=== PATIENT | female | born 1970 | race Caucasian/White ===

== ENCOUNTER 2019-01-18 06:57 | Day surgery (SDC) | payer OTHER ==
[2019-01-14 10:45] VITALS: BMI 47.4
--- NOTE | 2019-01-17 09:22 | HP ---
HISTORY AND PHYSICAL CHIEF COMPLAINT: Left knee pain. HISTORY OF PRESENT ILLNESS: The patient is a 48-year-old female on disability, who presents with progressive left knee pain for the past several months. She notes pain and giving way that limits her. She has tried medications in addition to an injection with only partial temporary relief. PAST MEDICAL HISTORY: Significant for diabetes, obesity, hypertension, and psychiatric disorder. PAST SURGICAL HISTORY: Significant for previous ankle surgery, section, and cholecystectomy. CURRENT MEDICATIONS: 1. Alprazolam. 2. Hydrochlorothiazide. 3. Ibuprofen. 4. Lisinopril. 5. Metformin. 6. Pravastatin. ALLERGIES: She denies drug allergies. FAMILY HISTORY: Significant for heart disease. SOCIAL HISTORY: Negative for current tobacco or alcohol use. REVIEW OF SYSTEMS: Sixteen-point review of systems otherwise reviewed and is noncontributory. PHYSICAL EXAMINATION: On examination, the patient is approximately 5 feet 5 inches, 275 pounds of endomorphic habitus. HEENT exam is nonfocal. Neck is supple. She has painless passive motion of her left hip. Straight leg raise is negative. Active motion left knee -12 to 95 degrees of flexion. She is tender about the lateral greater than medial joint line. She has a moderate effusion. Collaterals are stable, Lorenza is negative, Ar's elicits medial pain. Her distal neurovascular exam appears intact in the left lower extremity. Previous MRI of the left knee by report showed evidence of a posterior medial meniscal tear. IMPRESSION: 1. Internal derangement left knee with symptomatic medial meniscal tear. 2. Morbid obesity. RECOMMENDATIONS: I talked to the patient at length regarding her condition along with treatment options. At this point, she is quite symptomatic, having pain and mechanical symptoms despite conservative measures. After thorough discussion, opts to proceed with surgery. We will plan to proceed with arthroscopic evaluation with possible partial medial meniscectomy. We will likely perform that as an outpatient procedure. Risks and benefits were discussed at length in layman's terms. MMODL / IJN: [id number] /
[~2019-01-18 06:57] MED LIST: DEXAMETHASONE SOD PHOSPHATE 10 MG/ML 1 ML VIAL IV ONE; LACTATED RINGERS 1,000 ML IV SCH; MIDAZOLAM 2 MG/2 ML VIAL IV PRN; ONDANSETRON 4 MG/2 ML VIAL IVP ONE; SCOPOLAMINE 1.5MG/72HR PATCH TRANSDERM ONE; ceFAZolin 3 GM in SODIUM CHLORIDE 0.9% 100 ML IVPB ONE
[2019-01-18 07:50] LABS: Glucose,Whole Blood 131 mg/dL (75-99)
[2019-01-18] MEDS ORDERED: ROPIVACAINE 5 MG/ML 30 ML VIAL ONE (08:08)
[2019-01-18] MEDS ORDERED: fentaNYL (PF) 50 MCG/ML 2 ML AMP ONE (08:08)
[2019-01-18] MEDS ORDERED: PROPOFOL 10 MG/ML 20 ML VIAL IV ONE (08:08)
[2019-01-18] MEDS ORDERED: SUCCINYLCHOLINE CHLORIDE 100 MG/5 ML SYR IV ONE (08:08)
[2019-01-18] MEDS ORDERED: MIDAZOLAM 2 MG/2 ML VIAL ONE (08:08)
[2019-01-18] MEDS ORDERED: LIDOCAINE 1% INJ 10MG/ML (20 ML MDV) ONE (08:08)
[2019-01-18] MEDS ORDERED: EPINEPHrine (PF) 1 ML in SODIUM CHLORIDE 0.9% IRRIGATIO 3,000 ML IRRIGATION ONE ×8 (08:14)
--- NOTE | 2019-01-18 08:56 | P.OP ---
Date of Procedure: 01/18/19 Preoperative Diagnosis: Left knee internal derangement Postoperative Diagnosis: Left knee posterior medial meniscal tear/grade 3 chondral injury distal medial femoral condyle Procedure(s) Performed: Left knee arthroscopic partial medial meniscectomy/medial femoral chondrectomy/microfracture medial femoral condyle Anesthesia: JASIEL Surgeon: Juan Carlos Reddy Estimated Blood Loss (ml): 10 Pathology: none sent Condition: stable Disposition: PACU Indications for Procedure: The patient's a 48-year-old female who presents with progressive left knee pain and mechanical symptoms despite conservative measures. A discussion of the risks and benefits of operative intervention versus continued conservative measures was made with the patient. She opted to proceed with surgery. Operative risks to include infection, neurovascular injury, development blood clots, possible incomplete resolution of symptoms, possible worsening symptoms and need for subsequent procedures was discussed. Informed consent was obtained. Operative Findings: As below Description of Procedure: The patient was brought to the operating room, and after induction of general anesthesia examined the left knee. Collaterals were stable, Lorenza was nega tive, and posterior drawer was negative. The left lower extremity was prepped and draped in a normal fashion. A superior lateral portal was made through a 3 mm skin incision superior and lateral to the patella. This was used for outflow. A large effusion was encountered. A lateral portal was made through a 5 mm vertical skin incision lateral to the patella tendon above the joint line. Diagnostic arthroscopy was performed. On inspection of the medial compartment, and oblique tear involving the posterior horn of the medial meniscus in the white-red junction was noted.. This was debrided back to stable base with straight baskets and a motorized shaver. There was a loose chondral fragment on the distal end of the medial femoral condyle. This was debrided back to stable base with a motorized shaver. Microfracture was performed with a chondral awl breaching the subchondral surface down to the bone marrow elements. On inspection of the notch, the anterior cruciate ligament appeared to be intact. On inspection of the lateral compartment, no significant meniscal tear was noted. There were minimal degenerative changes. On inspection of the patellofemoral articulation grade 2 chondral fibrillation was noted however no loose chondral fragments were present. The gutters were clear debris. The knee was then thoroughly irrigated. The portals were closed with Steri-Strips. A sterile dressing was applied in addition to a compression stocking. The patient was awoken from general anesthesia and transferred to recovery room in good condition. Blood loss was estimated at 10 mL. No complications were incurred.
[2019-01-18 09:13] VITALS: TEMP 97
[2019-01-18 09:20] LABS: Glucose,Whole Blood 136 mg/dL (75-99)
[2019-01-18] MEDS: HYDROmorphone 0.5 MG/0.5 ML SYRINGE IVP PRN ×5 (09:20→10:38)
[2019-01-18] MEDS ORDERED: hydrALAZINE HCL 20 MG/ML 1 ML VIAL IVP ONE (09:58)
[2019-01-18] MEDS ORDERED: KETOROLAC 30 MG/ML 1 ML VIAL IVP ONE (10:08)
[2019-01-18] MEDS ORDERED: HYDROmorphone 1 MG/ML 1 ML SYRINGE IVP ONE (10:30)
[2019-01-18 11:08] VITALS: RESP 18
[2019-01-18] MEDS ORDERED: HYDROcodone/APAP 7.5-325MG 1 EACH TAB PO ONE ×2 (11:26→12:33)
[2019-01-18 13:07] VITALS: BP 146/75; PULSE 78
--- NOTE | 2019-01-18 13:25 | P.ANPRN ---
Procedure Note - Anesthesia - Nerve Block Performed Left Adductor Canal Single Time Out Performed: Yes Date of Procedure: 01/18/19 Procedure Start Time: 12:51 Procedure Stop Time: 12:59 Location of Patient Procedure: PACU Indication: Acute Post-Operative Pain, Requested by Surgeon Sedation Type: Sedate with meaningful contact maintained Preparation: Sterile Prep, Sterile Dressing Position: Supine Catheter: None Needle Types: Pajunk Needle Gauge: 20 Ultrasound used to visualize needle placement: Yes Ultrasound used to observe medication spread: Yes Injectate: 0.5% Ropivacaine (see comment for volume) (20 ml) Blood Aspirated: No Pain Paresthesia on Injection Noted: No Resistance on Injection: Normal Image Stored and Saved: Yes Events: Uneventful and Well Tolerated
== END 2019-01-18 13:26 | disposition home or self-care (01) ==
LOC: OR 06:57
PROVIDERS: ATTEND Orthopaedic Surgery
DX: S83.242A Other tear of medial meniscus, current injury, left knee, initial encounter (principal); X58.XXXA Exposure to other specified factors, initial encounter; M23.42 Loose body in knee, left knee; E11.9 Type 2 diabetes mellitus without complications; I10 Essential (primary) hypertension; E78.5 Hyperlipidemia, unspecified; F99 Mental disorder, not otherwise specified; E66.01 Morbid (severe) obesity due to excess calories; Z68.42 Body mass index [BMI] 45.0-49.9, adult; Z79.84 Long term (current) use of oral hypoglycemic drugs; Z79.1 Long term (current) use of non-steroidal anti-inflammatories (NSAID); Z79.899 Other long term (current) drug therapy; Z79.891 Long term (current) use of opiate analgesic; Z91.09 Other allergy status, other than to drugs and biological substances; Z98.890 Other specified postprocedural states; Z90.49 Acquired absence of other specified parts of digestive tract; Z90.89 Acquired absence of other organs; Z98.51 Tubal ligation status; Z82.49 Family history of ischemic heart disease and other diseases of the circulatory system
CPT/HCPCS: 64447; 76942; 29881; 29879; J2250; J0360; J1100; J0690; J2405; J0171; J2001; J3010; J1885; J1170 ×2; J2795; J0330; J2704

== ENCOUNTER → 2020-06-26 | Outpatient (CLI) | payer OTHER | END | disposition home or self-care (01) | LOC: LABPAT 09:17 | PROVIDERS: ATTEND Orthopaedic Surgery | DX: Z01.812 Encounter for preprocedural laboratory examination (principal) | CPT/HCPCS: 87070 ==

== ENCOUNTER 2020-07-17 05:47 | Day surgery (SDC) | payer OTHER ==
--- NOTE | 2020-07-16 09:23 | HP ---
HISTORY AND PHYSICAL CHIEF COMPLAINT: Left knee pain. HISTORY OF PRESENT ILLNESS: The patient is a 49-year-old female who presents with progressive left knee pain for the past several years. She notes pain with any weightbearing activities. She has swelling and intermittent giving way. She does ambulate with a cane. She has tried previous injections along with medications and a weight loss program without much relief. She notes she is significantly limited because of pain. PAST MEDICAL HISTORY: Significant for type 2 diabetes, hypertension, and depression. PAST SURGICAL HISTORY: Significant for significant left knee arthroscopy, cholecystectomy, ankle surgery, and section. CURRENT MEDICATIONS: 1. Alprazolam. 2. Benztropine. 3. Hydrochlorothiazide. 4. Ibuprofen. 5. Lisinopril. 6. Metformin. 7. Pravastatin. 8. Lexapro. 9. Lyrica. 10.Omeprazole. ALLERGIES: She denies drug allergies. FAMILY HISTORY: Significant for heart disease. SOCIAL HISTORY: Negative for current tobacco or alcohol use. REVIEW OF SYSTEMS: Sixteen-point review of systems otherwise reviewed and is noncontributory. PHYSICAL EXAMINATION: On examination, the patient is approximately 5 feet, 5 inches, 266 pounds of endomorphic habitus. HEENT exam is nonfocal. Neck is supple. She has painless passive motion left hip. Straight leg raise is negative. Active motion left knee -12 to 100 degrees of flexion. She has a moderate effusion. She is tender about the medial joint line. Collaterals are stable, Lorenza is negative, Ar's is equivocal. She has genu varum alignment. Her distal neurovascular exam appears intact in the left lower extremity. X-rays of the left knee obtained in the office shows severe medial compartment narrowing with [id number] changes and subchondral sclerosis. IMPRESSION: 1. Left knee severe medial compartment osteoarthrosis. 2. Non-insulin dependent diabetes. 3. Increased body mass index. RECOMMENDATIONS: I talked to the patient at length regarding her condition and treatment options. She has been adhering to weight loss program, has recently lost 25 pounds. After thorough discussion, she opts to proceed with surgery. We will plan to proceed with left total knee arthroplasty. Risks and benefits were discussed at length in layman's terms. We will institute DVT prophylaxis postoperatively. MMODL / IJN: [id number] /
[~2020-07-17 05:47] MED LIST changes: +ACETAMINOPHEN TAB 500 MG TAB PO PRN; -DEXAMETHASONE SOD PHOSPHATE 10 MG/ML 1 ML VIAL IV ONE; -LACTATED RINGERS 1,000 ML IV SCH; +MELOXICAM 7.5 MG TAB PO PRN; -MIDAZOLAM 2 MG/2 ML VIAL IV PRN; -ONDANSETRON 4 MG/2 ML VIAL IVP ONE; +ONDANSETRON 4 MG/2 ML VIAL IVP PRN; +ROPIVACAINE 246.25 MG, EPINEPHrine 0.5 MG, KETOROLAC 30 MG, cloNIDine HCL/PF 80 MCG, WA... MISCELLANE PRN; -SCOPOLAMINE 1.5MG/72HR PATCH TRANSDERM ONE; +TRANEXAMIC ACID 1,000 MG in SODIUM CHLORIDE 0.9% 100 ML IVPB PRN; -ceFAZolin 3 GM in SODIUM CHLORIDE 0.9% 100 ML IVPB ONE; +ceFAZolin 3 GM in SODIUM CHLORIDE 0.9% 100 ML IVPB PRN
[2020-07-17] MEDS ORDERED: LIDOCAINE 1% (10MG/ML) FOR IV START INTRADERMA ONE (06:45)
[2020-07-17] MEDS ORDERED: DEXAMETHASONE SOD PHOSPHATE 4 MG/ML 1 ML VIAL IV ONE (06:45)
[2020-07-17] MEDS: LACTATED RINGERS 1,000 ML IV SCH ×3 (06:45→16:28)
[2020-07-17] MEDS ORDERED: fentaNYL (PF) 50 MCG/ML 2 ML AMP IV PRN (07:00)
[2020-07-17 07:04] LABS: Glucose,Whole Blood 143 mg/dL (75-99)
[2020-07-17] MEDS ORDERED: MIDAZOLAM 2 MG/2 ML VIAL IV ONE ×2 (07:13→07:15)
[2020-07-17] MEDS ORDERED: ROCURONIUM 10 MG/ML (5 ML VIAL) IV ONE (07:43)
[2020-07-17] MEDS ORDERED: PROPOFOL 10 MG/ML 20 ML VIAL IV ONE (07:43)
[2020-07-17] MEDS ORDERED: fentaNYL (PF) 50 MCG/ML 2 ML AMP ONE (07:43)
[2020-07-17] MEDS ORDERED: HYDROmorphone (PF) 1 MG/ML ONE (07:43)
[2020-07-17] MEDS ORDERED: LIDOCAINE 1% INJ 10MG/ML (20 ML MDV) ONE (07:43)
[2020-07-17] MEDS ORDERED: TRANEXAMIC ACID 1,000 MG/10 ML VIAL ONE (07:43)
[2020-07-17] MEDS ORDERED: SUCCINYLCHOLINE CHLORIDE 100 MG/5 ML SYR IV ONE (07:43)
[2020-07-17] MEDS ORDERED: ePHEDrine SULFATE/0.9% NACL/PF 50 MG/5 ML SYRINGE IV ONE (07:43)
[2020-07-17] MEDS ORDERED: SODIUM CHLORIDE 0.9% 100 ML BAG ONE (07:43)
[2020-07-17] MEDS ORDERED: KETAMINE 10 MG/ML 20 ML VIAL ONE (07:43)
[2020-07-17] MEDS ORDERED: NEOSTIGMINE 1 MG/ML 10 ML VIAL ONE (07:43)
[2020-07-17] MEDS ORDERED: GLYCOPYRROLATE 0.2 MG/ML 2 ML VIAL ONE (07:43)
[2020-07-17] MEDS ORDERED: ROPIVACAINE/EPI/CLONIDINE/KET 50 ML SYRINGE MISCELLANE PRN (08:07)
[2020-07-17] MEDS ORDERED: ceFAZolin 3,000 MG in SODIUM CHLORIDE 0.9% IRRIGATIO 3,000 ML IRRIGATION ONE (08:21)
--- NOTE | 2020-07-17 09:24 | P.ANPRN ---
Procedure Note - Anesthesia - Nerve Block Performed Left Adductor Canal Time Out Performed: Yes (07:12) Date of Procedure: 07/17/20 Procedure Start Time: Procedure Stop Time: Location of Patient: PreOp Indication: Acute Post-Operative Pain, Requested by Surgeon (Dr Reddy) Sedation Type: Sedate with meaningful contact maintained Preparation: Sterile Prep, Sterile Dressing Position: Supine Catheter: Indwelling Needle Types: Pajunk Needle Gauge: 21 Ultrasound used to visualize needle placement: Yes Ultrasound used to observe medication spread: Yes Injectate: 0.5% Ropivacaine (see comment for volume) (20cc) Blood Aspirated: No Pain Paresthesia on Injection Noted: No Resistance on Injection: Normal Image Stored and Saved: Yes Events: Uneventful and Well Tolerated
[2020-07-17] MEDS ORDERED: ROPIVACAINE 0.2%-NS ON-Q PUMP 1,090 MG, EMPTY PAIN BALL 1 EACH MISCELLANE PRN (09:30)
[2020-07-17] MEDS ORDERED: HYDROcodone/APAP 7.5-325MG 1 EACH TAB PO PRN (09:39)
[2020-07-17] MEDS ORDERED: traMADol 50 MG TAB PO PRN (09:39)
[2020-07-17] MEDS ORDERED: ACETAMINOPHEN TAB 325 MG TAB PO PRN (09:39)
[2020-07-17] MEDS ORDERED: MAGNESIUM HYDROXIDE 2,400 MG/10 ML CUP PO PRN (09:39)
[2020-07-17] MEDS ORDERED: NALOXONE 0.4 MG/ML 1 ML VIAL IV PRN ×2 (09:39→16:44)
[2020-07-17] MEDS ORDERED: ONDANSETRON 4 MG/2 ML VIAL IVP PRN (09:39)
[2020-07-17] MEDS: HYDROmorphone 0.5 MG/0.5 ML SYRINGE IVP PRN ×4 (10:16→11:00)
--- NOTE | 2020-07-17 10:17 | P.OP ---
Date of Procedure: 07/17/20 Preoperative Diagnosis: Left knee severe tricompartmental osteoarthrosis Postoperative Diagnosis: Same Procedure(s) Performed: Left total knee arthroplastycementedposterior stabilized Implants: Depuy Attune the femoral component, size 5 cemented tibial component, 10 mm articular surface, 35 mm cemented patellar component. This is a posterior stabilized implant. Anesthesia: GETA, regional, local Surgeon: Juan Carlos Reddy Shop Mechanic #1: Gerardo Alexandre Assistant #2: Jorge England Estimated Blood Loss (ml): 50 Pathology: other (Bone fragments) Condition: stable Indications for Procedure: The patient is a 49-year-old female presents with progressive left knee pain secondary to osteoarthrosis despite previous conservative measures. A discussion of the risks and benefits of operative intervention versus continued conservative measures was made with patient. She opted to proceed with surgery. Operative risks to include possible infection, blood clots, fracture, neurovascular injury, possible component loosening/failure and need for subsequent procedures was discussed. Informed consent was obtained. Operative Findings: As below Description of Procedure: The patient was brought to the operating room, and after induction of spinal anesthesia the left lower extremity was prepped and draped in a normal fashion. The tourniquet was inflated to 270 mm marker. A longitudinal incision extending 3 finger breaths above the superior pole of patella extending to the medial aspect the tibial tubercle was then made. The skin and subcutaneous tissues were divided sharply. Electrocautery was used for hemostasis. A medial parapatellar arthrotomy was performed. The medial soft tissues to include the superficial and deep portions of the medial collateral ligament were elevated subperiosteally. The patella was everted. A portion of the retropatellar fat pad was excised sharply. The anterior cruciate ligament was sacrificed. Blunt retractors were placed. A starting hole was made in the distal femur 1 cm anterior to the posterior cruciate ligament origin. An intramedullary femoral guide was then inserted planning on 5 valgus distal cut with 9 mm distal resection. The cutting block was pinned in place. The distal cut was then made. The posterior referencing sizing guide was utilized. I felt size 6 narrow was most appropriate. 3 of external rotation was built into the system and verified off the trans-epicondylar axis and the posterior condyles. The cutting block was pinned in place. The anterior, posterior, and chamfer cuts then made. Bone fragments were removed. The intercondylar guide was placed and the notch cut was made with a sagittal saw. The bone block was removed in one fragment. The trial component was then placed. There is good anterior to posterior and medial to lateral fit. The distal peg holes were drilled. The trial component was removed. Attention was then paid towards preparing the proximal femur. An extra medullary guide was utilized in line with the tibial shaft and second metatarsal distally. I planned on 4 mm resection from the medial compartment. The cutting block was pinned in place. The proximal tibial cut was then made. The bone was removed in one fragment. The remnants of the medial and lateral menisci were excised at the capsular junction with electrocautery. The tibia sized most appropriately at size 5. The trial femoral and tibial components were placed along with a 9 mm articular surface. I was able to obtain full flexion and extension with internal and external rotation. After several flexion and extension cycles, the tibial rotation was marked with electrocautery line with the medial one third of the tibial tubercle. Attention was then paid towards preparing the patella. A patella reamer was utilized taking stem to 14 mm of bone stock. A good flush cut was made. The patella sized most appropriately 35 mm. The peg holes were drilled. The trial components placed. I had good patellofemoral tracking with no hands technique. The trial components were then removed. The tibia was prepared in the appropriate rotation with appropriate drill and keel punch. The posterior osteophytes were removed with a curved osteotome. The flexion and extension gaps were checked and felt to be symmetric at 10 mm. A trial components were then removed. The posterior soft tissues were injected with ropivacaine. The bony surfaces were prepared with pulsatile lavage and dried. The tibial component was then cemented place was fully seated. Excess cement was removed. The femoral component cemented place and was fully seated. Excess cement was removed. The trial 10 mm articular surface was placed and the knee was put in full extension. The patella component was cemented place. After the cement had sufficiently hardened, the knee was again taken through a range of motion. Again I was able to obtain full flexion and extension with varus and valgus st ress. The trial 10 mm articular surface was removed and the final one inserted. This was fully seated. Care was taken to avoid any soft tissue interposition. Pulsatile lavage was again utilized. The medial parapatellar arthrotomy was closed with #2 Ethibond suture. The tourniquet was deflated with approximately 65 minutes total tourniquet time. Final hemostasis was obtained with the cautery. There was minimal bleeding therefore a deep drain was not placed. The subcutaneous tissues were reapproximated with interrupted 2-0 Vicryl sutures. The skin was reapproximated with 3-0 subcuticular strata fix suture. Skin tape and adhesive was applied. A sterile dressing was applied. The patient was awoken from sedation and transferred to recovery room in good condition. Blood loss was estimated at 50 mL. No complications were incurred. Sponge and needle counts were correct at the end of the case. Leif HERRERA assisted during the major components of this case to include exposure, bone resection, implantation, and closure.
--- NOTE | 2020-07-17 10:47 | XR ---
EXAMINATION TYPE: XR knee limited LT DATE OF EXAM: 07/17/2020 COMPARISON: NONE TECHNIQUE: Two views submitted HISTORY: Post op FINDINGS: There is a prosthetic knee in near anatomic alignment. There is soft tissue edema and emphysema. IMPRESSION: 1. Postoperative change. Appears in near-anatomic alignment
[2020-07-17] MEDS ORDERED: LACTATED RINGERS 1,000 ML IV ONE (10:49)
[2020-07-17 16:41] LABS: Glucose,Whole Blood 241 mg/dL (75-99)
--- NOTE | 2020-07-17 17:03 | P.CONS ---
History of Present Illness - Reason for Consult Consult date: 07/17/20 Medical Managment - Chief Complaint Status post left total knee arthroplasty - History of Present Illness History of presenting illness: Patient is a 49-year-old female with a past medical history including hypertension, hyperlipidemia, chronic back pain with implanted morphine pain pump, bipolar disorder, and depression. Patient currently admitted under Dr. Reddy status post left total knee arthroplasty secondary to severe tricompartmental osteoarthritis. Our team has been consulted for continued medical management. Upon examination, patient sitting up in chair at bedside. She was awake, alert, and oriented 4. She reported mild postop pain/discomfort in left lower extremity but reports this is at a tolerable level at this time. Patient states she has been able to tolerate oral intake of both solids foods and liquids status post surgical procedure and denies having any postoperative nausea or vomiting. Patient's past medical history and home medications were reviewed and confirmed. Patient denies knowing dose of morphine that is administered through her implantable pain pump and is calling pain clinic at this time. RN notified Dr. Reddy, primary admitting provider whom will be in control of pain management. Patient denies having any headache, lightheadedness, dizziness, changes in her vision or hearing, tinnitus, chest pa in or palpitations, shortness of breath, cough or congestion, abdominal pain, nausea, vomiting, experiencing any changes/difficulties with urinary or bowel function, or experiencing any numbness/tingling/weakness in extremities. Patient denies having any other questions, needs, or complaints at this time. Review of systems: Pertinent positives and negatives as discussed in HPI, a complete review of systems was performed and all other systems are negative. Physical exam: General: non toxic, no distress, appears at stated age Derm: warm, dry Head: atraumatic, normocephalic, symmetric Eyes: EOMI, no lid lag, anicteric sclera Mouth: no lip lesion, mucus membranes moist. Missing teeth. Cardiovascular: S1S2 normal with regular rate and rhythm. No murmur, gallop, or rub. Positive posterior tibial pulses bilaterally. Lungs: Respirations even and unlabored. Lungs CTA bilaterally with no wheezes, rhonchi, or rales noted. No accessory muscle usage. Abdominal: Obese abdomen soft, nontender to palpation, no guarding, no appreciable organomegaly Ext: Bilateral upper and right lower extremity with full range of motion and movement and sensation intact. No deformities noted. Postsurgical splint/dressing in place to left lower extremity sensation and movement of left toes intact. Cap refill less than 2 seconds. No signs of postsurgical bleeding through surgical dressing noted. Neuro: CN II-XI grossly intact, no focal neuro deficits Psych: Alert, oriented, appropriate affect Assessment and Plan of Care: Xaz-cvmyage-jxcxcmxli diabetes mellitus type II with hyperglycemia -Hold Glucophage. Patient placed on glycemic protocol with NovoLog sliding scale to be administered ACHS. -Heart healthy carb consistent diet. Hypertension -Monitor vital signs and continue daily medication regimen with hydrochlorothiazide and lisinopril. Hyperlipidemia -Continue daily medication management with pravastatin 40 mg nightly. -Heart healthy carb consistent diet. Bipolar disorder with depression -Continue daily medication regimen consisting of Xanax, Cogentin, Topamax, and Geodon. Chronic back pain -Patient has implantable morphine pump. Patient is calling pain clinic to get dose that is administered every 3 hours. -Orthopedic team has been notified of pain pump, and will be in charge of patient's pain management. -Narcan order has been placed. Status post left total knee arthroplasty -Patient is status post left total knee arthroplasty secondary to severe tricompartmental osteoarthritis. -Postoperative care, pain management, DVT prophylaxis, weightbearing activities, PT/OT as directed by primary admitting orthopedic surgery team. -Patient currently on DVT prophylaxis with Xarelto. Thank you for allowing us to participate in the care of this pleasant patient. Do not hesitate to contact us with questions. Someone can be reached from the [facility] hospitalist group all hours of the day at [phone] or via [email or web address]. Past Medical History Past Medical History: Diabetes Mellitus, Hyperlipidemia, Hypertension, Memory Impairment Additional Past Medical History / Comment(s): mood disorder. PATIENT HAS A MORPHINE PUMP, MANAGED BY JAVIER WATSON (WITH DR. MOSQUERA) NEW DOSE DUE SEPTEMBER 11. History of Any Multi-Drug Resistant Organisms: None Reported Past Surgical History: Section, Cholecystectomy, Orthopedic Surgery, Tonsillectomy Additional Past Surgical History / Comment(s): LEFT ARTHOSCOPY IN 2019. C-SEC X 2. LT ANKLE SX Past Anesthesia/Blood Transfusion Reactions: No Reported Reaction Past Psychological History: Anxiety, Bipolar, Depression Additional Psychological History / Comment(s): MOOD DISORDER Smoking Status: Never smoker Past Alcohol Use History: Occasional Additional Past Alcohol Use History / Comment(s): QUIT SMOKING IN 1999 Past Drug Use History: Marijuana Additional Drug Use History / Comment(s): USES MARIJUANA ON OCCASION-KNOWS TO REFRAIN FROM USE FOR AT LEAT 24 HOURS PRIOR TO PROCEDURE - Past Family History Mother Family Medical History: No Reported History Medications and Allergies Home Medications Medication Instructions Recorded Confirmed Type Benztropine Mesylate [Cogentin] 1 mg PO BID 01/14/19 07/12/20 History Morphine Pain Pump 1 dose INJ CONTINUOUS 01/14/19 07/12/20 History Pravastatin Sodium [Pravachol] 40 mg PO HS 01/14/19 07/12/20 History Pregabalin [Lyrica] 100 mg PO BID 01/14/19 07/12/20 History Topiramate [Topamax] 50 mg PO BID 01/14/19 07/12/20 History Ziprasidone [Geodon] 80 mg PO HS 01/14/19 07/12/20 History hydroCHLOROthiazide [Hydrodiuril] 25 mg PO QAM 01/14/19 07/12/20 History lisinopriL [Zestril] 20 mg PO QAM 01/14/19 07/12/20 History metFORMIN HCL [Glucophage] 850 mg PO BID 01/14/19 07/12/20 History ALPRAZolam [Xanax] 0.5 mg PO QAM 07/12/20 07/12/20 History ALPRAZolam [Xanax] 1 mg PO HS PRN 07/12/20 07/12/20 History Omeprazole [PriLOSEC] 20 mg PO DAILY PRN 07/12/20 07/12/20 History Allergies Allergy/AdvReac Type Severity Reaction Status Date / Time No Known Allergies Allergy Verified 07/17/20 06:19 Physical Exam Vitals: Vital Signs Temp Pulse Pulse Resp BP Pulse Ox 07/17/20 14:00 96 18 129/57 97 07/17/20 13:40 90 16 106/53 94 L 07/17/20 13:00 94 18 122/57 98 07/17/20 12:01 88 18 133/59 94 L 07/17/20 11:30 80 18 116/60 94 L 07/17/20 11:01 83 18 142/64 95 07/17/20 10:46 88 18 136/58 92 L 07/17/20 10:30 89 18 144/85 92 L 07/17/20 10:15 87 18 141/86 99 07/17/20 10:06 98.2 F 115 H 25 H 132/83 97 07/17/20 07:40 64 16 93/54 98 07/17/20 07:30 64 16 93/50 97 07/17/20 06:45 97.0 F L 76 16 123/66 96 Intake and Output 07/17/20 07/17/20 07/17/20 06:59 14:59 22:59 Intake Total 400 701 Output Total 50 Balance 400 651 Intake: IV 400 701 Output: Estimated Blood Loss 50 Other: Weight 116 kg 116 kg Results Labs: Abnormal Lab Results - Last 24 Hours (Table) 07/17/20 Range/Units 06:55 POC Glucose (mg/dL) 143 H (75-99) mg/dL
[2020-07-17] MEDS: HYDROcodone/APAP 7.5-325MG 1 EACH TAB PO PRN (17:47)
[2020-07-17] MEDS: INSULIN ASPART (NovoLOG) 100 UNIT/ML VIAL SQ SCH ×2 (17:48→19:55)
[2020-07-17 19:53] LABS: Glucose,Whole Blood 187 mg/dL (75-99)
[2020-07-17] MEDS ORDERED: PRAVASTATIN SODIUM 40 MG TAB PO SCH (21:00)
[2020-07-17] MEDS ORDERED: ZIPRASIDONE 40 MG CAP PO SCH (21:00)
[2020-07-17] MEDS ORDERED: SENNOSIDES-DOCUSATE SODIUM 1 EACH TAB PO SCH (21:00)
[2020-07-17] MEDS: TOPIRAMATE 25 MG TAB PO SCH (21:23)
[2020-07-17] MEDS: PREGABALIN 100 MG CAP PO SCH (21:23)
[2020-07-17] MEDS: BENZTROPINE MESYLATE 1 MG TAB PO SCH (21:23)
[2020-07-18] MEDS: HYDROcodone/APAP 7.5-325MG 1 EACH TAB PO PRN ×2 (05:28→12:11)
[2020-07-18 06:41] LABS: Glucose,Whole Blood 189 mg/dL (75-99)
[2020-07-18] MEDS: INSULIN ASPART (NovoLOG) 100 UNIT/ML VIAL SQ SCH ×2 (07:10→12:07)
[2020-07-18] MEDS ORDERED: PANTOPRAZOLE 40 MG TABLET PO SCH (07:30)
--- NOTE | 2020-07-18 07:53 | P.PN ---
Progress Note - Text The patient is status post left adductor canal catheter placement. The catheter was placed for postoperative pain control, status post total left arthroplasty. Ropivacaine 0.2% is infusing at 8 mLs per hour. The patient has no complaints of left lower extremity numbness or weakness. Patient's VAS score is 2-3 -10. Assessment: Patient's adductor canal catheter is in place and working appropriately. Plan: continue infusion and adjust it as needed.
[2020-07-18 08:03] VITALS: PULSE 88
[2020-07-18 08:48] LABS: Basophils # (A) 0.04 X 10*3/uL (0.00-0.10); Basophils % (A) 0.4 %; Eosinophils # (A) 0.12 X 10*3/uL (0.04-0.35); Eosinophils % (A) 1.3 %; HCT 30.3 % (37.2-46.3); HGB 9.6 g/dL (12.0-15.0); Lymphocytes # (A) 2.82 X 10*3/uL (0.90-5.00); Lymphocytes % (A) 29.7 %; MCH 27.8 pg (27.0-32.0); MCHC 31.7 g/dL (32.0-37.0); MCV 87.8 fL (80.0-97.0); Monocytes % (A) 8.4 %; Neutrophils # (A) 5.66 X 10*3/uL (1.80-7.70); Neutrophils % (A) 59.8 %; Platelet Count 287 X 10*3/uL (140-440); RBC 3.45 X 10*6/uL (4.10-5.20); RDW 14.1 % (11.5-14.5); WBC 9.48 X 10*3/uL (4.50-10.00)
[2020-07-18] MEDS ORDERED: RIVAROXABAN 10 MG TAB PO SCH (09:00)
[2020-07-18] MEDS ORDERED: lisinopriL 20 MG TAB PO SCH (09:00)
[2020-07-18] MEDS ORDERED: ALPRAZolam 0.5 MG TAB PO SCH (09:00)
[2020-07-18] MEDS ORDERED: hydroCHLOROthiazide 25 MG TAB PO SCH (09:00)
[2020-07-18 09:18] LABS: African American GFR (CKD) 86.4 (60.0-200.0); Anion Gap 11.2 mmol/L (4.00-12.00); BUN/Creat Ratio 16.67 Ratio (12.00-20.00); Calcium 8.8 mg/dL (8.7-10.3); Carbon Dioxide 25.8 mmol/L (21.6-31.8); Magnesium 1.7 mg/dL (1.5-2.4); Non-African American GFR(CKD) 74.6 (60.0-200.0); Potassium 3.5 mmol/L (3.5-5.5)
[2020-07-18] MEDS: PREGABALIN 100 MG CAP PO SCH (10:21)
[2020-07-18] MEDS: TOPIRAMATE 25 MG TAB PO SCH (10:23)
[2020-07-18] MEDS: BENZTROPINE MESYLATE 1 MG TAB PO SCH (10:25)
--- NOTE | 2020-07-18 10:29 | P.PN ---
Subjective Progress Note Date: 07/18/20 Principal diagnosis: Left total knee arthroplasty Postoperative day 1 Status post total left knee arthroplasty Upon entering room patient was lying semi-recumbent in bed. Patient was icing knee. Patient rates pain as 8 out of 10. Patient has been working with physical therapy and has been ambulating around the floor with walker for assistance. Patient says she is ready to go home today. Patient says her pain doctor told her to discontinue her pain pump. Objective - Vital Signs Vital signs: Vital Signs Temp 98.6 F 07/18/20 08:02 Pulse 88 07/18/20 08:02 Resp 14 07/18/20 08:02 BP 130/77 07/18/20 08:02 Pulse Ox 99 07/18/20 01:39 Intake & Output 07/17/20 07/18/20 07/18/20 18:59 06:59 18:59 Intake Total 701 Output Total 50 Balance 651 Weight 116 kg Intake: IV 701 Output: Estimated Blood Loss 50 Other: Voiding Method Toilet # Voids 1 2 - Exam Incision is clean, dry, and intact. The exofin fusion tape is in good condition. There is minimal soft tissue swelling and ecchymosis surrounding the medial and lateral aspects of the incision. Calf is soft, no tenderness with palpation. Plantar flexion, dorsiflexion, EHL, FHL are intact. Sensory exam to light touch throughout the extremity is intact, dorsal pedis pulses 2+. - Labs CBC & Chem 7: 07/18/20 05:22 07/18/20 05:22 Labs: Abnormal Lab Results - Last 24 Hours (Table) 07/17/20 07/17/20 07/18/20 Range/Units 16:31 19:51 05:22 RBC 3.45 L (4.10-5.20) X 10*6/uL Hgb 9.6 L (12.0-15.0) g/dL Hct 30.3 L (37.2-46.3) % MCHC 31.7 L (32.0-37.0) g/dL Glucose (70-110) mg/dL POC Glucose (mg/dL) 241 H 187 H (75-99) mg/dL 07/18/20 07/18/20 Range/Units 05:22 06:40 RBC (4.10-5.20) X 10*6/uL Hgb (12.0-15.0) g/dL Hct (37.2-46.3) % MCHC (32.0-37.0) g/dL Glucose 179 H (70-110) mg/dL POC Glucose (mg/dL) 189 H (75-99) mg/dL Assessment and Plan Assessment: Postop day 1 Status post Left total knee arthroplasty Plan: Plan: 1. Continue with medical management 2. Pain medication - [place] 7.5 mg/325 mg 3. Continue with physical therapy at home, including gait/stair training. 4. DVT prophylaxis - Eliquis 2.5 mg twice a day for 2 weeks 5. Take stool softeners as needed 6. Discharge planning 7. Anticipated discharge today, 07/18/2020. keep exofin fusion tape on until 2 week postoperative visit. Cover incision with plastic bag or saran wrap while showering. Time with Patient: Less than 30
--- NOTE | 2020-07-18 10:35 | P.DS ---
Providers Date of admission: 07/17/2020 Expected date of discharge: 07/18/20 Attending physician: Juan Carlos Reddy Consults: 07/17/20 09:41 Consult Physician Routine Consulting Provider: Doris Olea Consult Reason/Comments: Medical Management Do you want consulting provider notified?: Yes 07/17/20 16:52 Consult to Anesthesia Routine Consulting Provider: Anesthesia,Services Consult Reason/Comments: implanted pain pump Primary care physician: Stated None Hospital Course: Date of admission: 07/17/2020 Date of discharge: 07/18/2020 Admission diagnosis: Left total knee arthroplasty Discharge diagnosis: same Attending physician: Dr. Reddy Surgical procedures: Left total knee arthroplasty Brief history: Patient is a 49-year-old female with a history of progressive primary left knee osteoarthritis. At this point patient has failed conservative treatment measures and has opted to proceed with a elective left total knee arthroplasty. Hospital course: Details of patient's surgery can be found in operative report. Patient tolerated the procedure well and was subsequently transported to orthopedic floor. Patient's orthopeidc and medical care was provided daily. Patient had daily laboratory tests performed for evaluation of overall blood counts. Patient had daily physical therapy to include strengthening range of motion as well as education with walker ambulation. Patient was treated with eloquence for their postoperative DVT prophylaxis during their inpatient stay. Patient was noted to have a relatively uneventful postoperative course. Patient reported satisfactory pain control with oral pain medications by postoperative day 1. Patient showed satisfactory progress with physical therapy. Patient moved steadily through the program and had no difficulty meeting the goals by postoperative day 1. Given patient's otherwise satisfactory course and having met physical therapy goals, plan is to discharge patient home on postoperative day 1. Discharge condition/disposition: Patient will be discharged home in stable condition. Discharge medications: Instructions are given on resumption of patient's normal daily medications per primary care recommendation, in addition patient will be prescribed [place] 7.5 mg/325 mg, Eliquis 2.5 mg, Colace 100 mg. Discharge instructions: 1. Wound care and infection precautions, keep incision dry and covered while showering, no lotions, creams, moisturizers. No soaking, tubs, pools, hottubs. Do not scrub over the incision. 2. Weight-bear as tolerated with walker / cane until follow-up. 3. Ice and elevate when necessary. Do not exceed 20 minutes per hour with ice pack. 4. Utilize compression sleeve until seen at first follow up appointment. 5. Visiting nursing care. 6. Home physical therapy including home CPM. 7. Pain meds and anticoagulants per prescription. 8. Pain medication has potential to cause constipation. Increase oral fluid and fiber intake. Contact primary care provider if you have not had a bowel movement within 48 hours after discharge 9. No anti-inflammatory medication until discussed at first post operative visit, this including Motrin, Aleve, Mobic, Diclofenac,. 10. Follow up in office at 2 weeks postop with Leif Alexandre PA-C / Jorge England PA-C 11. Follow up with your primary care doctor 7-10 days after discharge. 12. Contact [facility] with any questions, . Procedures: Left total knee arthroplasty Patient Condition at Discharge: Good Plan - Discharge Summary Discharge Rx Participant: Yes New Discharge Prescriptions: New Docusate [Colace] 100 mg PO DAILY #30 capsule HYDROcodone/APAP 7.5-325MG [[place] 7.5] 1 each PO Q6HR PRN #42 tab PRN Reason: Pain Apixaban [Eliquis] 2.5 mg PO BID #60 tab No Action Ziprasidone [Geodon] 80 mg PO HS Pregabalin [Lyrica] 100 mg PO BID Pravastatin Sodium [Pravachol] 40 mg PO HS Benztropine Mesylate [Cogentin] 1 mg PO BID metFORMIN HCL [Glucophage] 850 mg PO BID Topiramate [Topamax] 50 mg PO BID lisinopriL [Zestril] 20 mg PO QAM hydroCHLOROthiazide [Hydrodiuril] 25 mg PO QAM Morphine Pain Pump 1 dose INJ CONTINUOUS Omeprazole [PriLOSEC] 20 mg PO DAILY PRN PRN Reason: GERD ALPRAZolam [Xanax] 1 mg PO HS PRN PRN Reason: ANXIETY/INSOMNIA ALPRAZolam [Xanax] 0.5 mg PO QAM Discharge Medication List Benztropine Mesylate [Cogentin] 1 mg PO BID 01/14/19 [History] Morphine Pain Pump 1 dose INJ CONTINUOUS 01/14/19 [History] Pravastatin Sodium [Pravachol] 40 mg PO HS 01/14/19 [History] Pregabalin [Lyrica] 100 mg PO BID 01/14/19 [History] Topiramate [Topamax] 50 mg PO BID 01/14/19 [History] Ziprasidone [Geodon] 80 mg PO HS 01/14/19 [History] hydroCHLOROthiazide [Hydrodiuril] 25 mg PO QAM 01/14/19 [History] lisinopriL [Zestril] 20 mg PO QAM 01/14/19 [History] metFORMIN HCL [Glucophage] 850 mg PO BID 01/14/19 [History] ALPRAZolam [Xanax] 0.5 mg PO QAM 07/12/20 [History] ALPRAZolam [Xanax] 1 mg PO HS PRN 07/12/20 [History] Omeprazole [PriLOSEC] 20 mg PO DAILY PRN 07/12/20 [History] Apixaban [Eliquis] 2.5 mg PO BID #60 tab 07/18/20 [Rx] Docusate [Colace] 100 mg PO DAILY #30 capsule 07/18/20 [Rx] HYDROcodone/APAP 7.5-325MG [[place] 7.5] 1 each PO Q6HR PRN #42 tab 07/18/20 [Rx] Follow up Appointment(s)/Referral(s): [facility], [NON-STAFF] - ([facility] will call you to arrange your first visit for home physical therapy and home nursing. Your first visit should be the day after discharge from the hospital. ) Samantha Lin [NON-STAFF] - (Please call Riley Singh once home to arrange delivery of the Continuous Passive Motion (CPM) machine - [phone]) Gerardo Alexandre, PAC [PHYSICIAN TAX COMPLIANCE REPRESENTATIVE] - 2 Weeks Patient Instructions/Handouts: *Surgery [facility] - On-Q Pain Pump Discharge Instructions, Precautions after Total Joint Replacement Surgery (DC), Joint Replacement Surgery (DC) Activity/Diet/Wound Care/Special Instructions: Orthopedic Discharge Instructions: 1. Wound care and infection precautions, keep incision dry and covered while showering, no lotions, creams, moisturizers. No soaking, pools, hot tubs. Do not scrub over incision. 2. Weight-bear as tolerated with walker / cane until follow-up. 3. Ice and elevate when necessary. Do not exceed 20 minutes per hour with ice pack. 4. Utilize compression sleeve until seen at first follow up appointment. 5. Pain meds and anticoagulants per prescription. 6. Pain medication has potential to cause constipation. Increase oral fluid and fiber intake. Contact primary care provider if you have not had a bowel movement within 48 hours after discharge. 7. No anti-inflammatory medication until discussed at first post operative visit, this including Motrin, Aleve, Mobic, Diclofenac. 8. Follow up in office at 2 weeks postop with Leif Alexandre PA-C / Jorge England PA-C 9. Follow up with your primary care doctor 7-10 days after discharge. 10. Contact [facility] with any questions, . cover incision with plastic bag or Saran wrap while showering. Keep exofin fusion tape over incision until 2 week post operative visit in office Discharge Disposition: HOME WITH HOME HEALTH SERVICES
[2020-07-18] MEDS: LACTATED RINGERS 1,000 ML IV SCH (11:17)
[2020-07-18 11:28] LABS: Glucose,Whole Blood 187 mg/dL (75-99)
--- NOTE | 2020-07-18 11:36 | P.PN ---
Subjective Progress Note Date: 07/18/20 No new complaints today. Pt to be discharged home by primary team. Objective - Vital Signs Vital signs: Vital Signs Temp 98.6 F 07/18/20 08:02 Pulse 88 07/18/20 08:02 Resp 14 07/18/20 08:02 BP 130/77 07/18/20 08:02 Pulse Ox 99 07/18/20 01:39 Intake & Output 07/17/20 07/18/20 07/18/20 18:59 06:59 18:59 Intake Total 701 Output Total 50 Balance 651 Weight 116 kg Intake: IV 701 Output: Estimated Blood Loss 50 Other: Voiding Method Toilet # Voids 1 2 - Exam Gen: awake, alert HEENT: normocephalic, atraumatic, good hearing acuity, moist mucous membranes Resp: good air exchange, breathing comfortably with no accessory muscle use CVS: good distal perfusion x 4, GI: soft, NTTP, ND : no SPT, no CVAT, brock catheter is not present MSK: no pitting edema, no clubbing Neuro: non-focal, moving all extremities Psych: cooperative, euthymic mood - Labs CBC & Chem 7: 07/18/20 05:22 07/18/20 05:22 Labs: Abnormal Lab Results - Last 24 Hours (Table) 07/17/20 07/17/20 07/18/20 Range/Units 16:31 19:51 05:22 RBC 3.45 L (4.10-5.20) X 10*6/uL Hgb 9.6 L (12.0-15.0) g/dL Hct 30.3 L (37.2-46.3) % MCHC 31.7 L (32.0-37.0) g/dL Glucose (70-110) mg/dL POC Glucose (mg/dL) 241 H 187 H (75-99) mg/dL 07/18/20 07/18/20 07/18/20 Range/Units 05:22 06:40 11:26 RBC (4.10-5.20) X 10*6/uL Hgb (12.0-15.0) g/dL Hct (37.2-46.3) % MCHC (32.0-37.0) g/dL Glucose 179 H (70-110) mg/dL POC Glucose (mg/dL) 189 H 187 H (75-99) mg/dL Assessment and Plan Assessment: [id number] diabetes mellitus type II with hyperglycemia -Hold Glucophage. Patient placed on glycemic protocol with NovoLog sliding scale to be administered ACHS. -Heart healthy carb consistent diet. Hypertension -Monitor vital signs and continue daily medication regimen with hydrochlorothiazide and lisinopril. Hyperlipidemia -Continue daily medication management with pravastatin 40 mg nightly. -Heart healthy carb consistent diet. Bipolar disorder with depression -Continue daily medication regimen consisting of Xanax, Cogentin, Topamax, and Geodon. Chronic back pain -Patient has implantable morphine pump. Patient is calling pain clinic to get dose that is administered every 3 hours. -Orthopedic team has been notified of pain pump, and will be in charge of patient's pain management. -Narcan order has been placed. Status post left total knee arthroplasty -Patient is status post left total knee arthroplasty secondary to severe tricompartmental osteoarthritis. -Postoperative care, pain management, DVT prophylaxis, weightbearing activities, PT/OT as directed by primary admitting orthopedic surgery team. -Patient currently on DVT prophylaxis with Xarelto. Patient cleared for discharge from medical perspective. No changes to home medications. Thank you for allowing us to participate in the care of this pleasant patient. Do not hesitate to contact us with questions. Someone can be reached from the [facility] hospitalist group all hours of the day at [phone] or via [employer].
[2020-07-18 13:21] VITALS: BP 151/81; RESP 15; TEMP 99.3
== END 2020-07-18 13:22 | disposition home health service (06) ==
LOC: OR 05:47 → 4SSUR 15:25 → OR 07-18 13:22
PROVIDERS: ATTEND Orthopaedic Surgery
DX: M17.12 Unilateral primary osteoarthritis, left knee (principal); I10 Essential (primary) hypertension; E11.9 Type 2 diabetes mellitus without complications; E78.5 Hyperlipidemia, unspecified; F31.9 Bipolar disorder, unspecified; Z79.84 Long term (current) use of oral hypoglycemic drugs; Z79.899 Other long term (current) drug therapy
CPT/HCPCS: 93005; 97110; 97161; 64448; 76942; 80048; 83735; 85025; 88300; 73560; 27447; C1713; C1776; J2250; J0171; J1100; J2710; J0690 ×3; J2405; J2001; J3010; J1885; J1170 ×2; J2795 ×2; J0330; J2704; J0735

== ENCOUNTER → 2021-10-17 | Outpatient (CLI) | payer OTHER ==
--- NOTE | 2021-10-17 23:15 | MR ---
EXAMINATION TYPE: MR knee RT wo con DATE OF EXAM: 10/17/2021 COMPARISON: Right knee x-ray September 02, 2021 HISTORY: Right inner knee pain, painful kneecap, locking, and swelling for 2 months due to fall. TECHNIQUE: Multiplanar, multisequence imaging of the right knee is performed without IV contrast. FINDINGS: MEDIAL MENISCUS: Slight medial extrusion medial meniscus on coronal images Horizontal and got globula r increased signal posterior horn for reference sagittal image 11 extends to inferior articular surfa ce. LATERAL MENISCUS: Anterior and posterior horns are intact without tear. CRUCIATE LIGAMENTS: The anterior and posterior cruciate ligaments are intact and unremarkable. COLLATERAL LIGAMENTS: The medial collateral ligament and lateral collateral ligament complex are inta ct. Mild fluid signal surrounds medial collateral ligament. EXTENSOR MECHANISM: Visualized quadriceps and patellar tendons are intact. EFFUSION: Moderate size suprapatellar joint effusion. POPLITEAL CYST: Moderate size popliteal/calderón cyst. TRICOMPARTMENT SPACES: Moderate narrowing patellofemoral compartment. Mild tricompartment spurring. M ild narrowing medial and lateral tibiofemoral compartments. CARTILAGE: Chondromalacia patella with thinning of articular cartilage along posterior patellar pole. Some cartilaginous loss medial tibial femoral compartment. BONE MARROW SIGNAL: No focal abnormal marrow signal is appreciated. OTHER: No additional significant abnormality is appreciated. IMPRESSION: 1. Subtle full-thickness tear posterior horn medial meniscus. 2. Moderate size suprapatellar joint effusion. 3. Proximal moderate tricompartment degenerative changes greatest patellofemoral compartment as detai led above. 4. Moderate size popliteal cyst. 5. Mild MCL sprain injury.
== END | disposition home or self-care (01) ==
LOC: RADMRIMAIN 13:10
PROVIDERS: ATTEND Orthopaedic Surgery
DX: M23.321 Other meniscus derangements, posterior horn of medial meniscus, right knee (principal); M17.11 Unilateral primary osteoarthritis, right knee; S83.411A Sprain of medial collateral ligament of right knee, initial encounter

== ENCOUNTER → 2021-10-30 | Outpatient (CLI) | payer OTHER ==
[2021-10-30 14:29] LABS: Basophils # (A) 0.08 X 10*3/uL (0.00-0.10); Basophils % (A) 0.9 %; Eosinophils # (A) 0.49 X 10*3/uL (0.04-0.35); Eosinophils % (A) 5.4 %; HCT 38.5 % (37.2-46.3); HGB 12.1 g/dL (12.0-15.0); Immature Grans, Automated 0.4 %; Lymphocytes # (A) 2.12 X 10*3/uL (0.90-5.00); Lymphocytes % (A) 23.2 %; MCH 27.4 pg (27.0-32.0); MCHC 31.4 g/dL (32.0-37.0); MCV 87.3 fL (80.0-97.0); Mean Platelet Volume 10.5 fL (9.5-12.2); Monocytes # (A) 0.46 X 10*3/uL (0.20-1.00); NRBC Per 100 WBC 0 /100 WBCS (0.0-0.0); Neutrophils # (A) 5.93 X 10*3/uL (1.80-7.70); Neutrophils % (A) 65.1 %; Platelet Count 372 X 10*3/uL (140-440); RBC 4.41 X 10*6/uL (4.10-5.20); RDW 13.1 % (11.5-14.5); WBC 9.12 X 10*3/uL (4.50-10.00)
[2021-10-30 14:43] LABS: Anion Gap 14.1 mmol/L (10.00-18.00); Carbon Dioxide 27.8 mmol/L (20.0-27.5); Potassium 4.4 mmol/L (3.5-5.5)
== END | disposition home or self-care (01) ==
LOC: LABPAT 09:50
PROVIDERS: ATTEND Orthopaedic Surgery
DX: Z01.818 Encounter for other preprocedural examination (principal); M23.91 Unspecified internal derangement of right knee
CPT/HCPCS: 80051; 85025; 93005

== ENCOUNTER 2021-11-22 05:27 | Day surgery (SDC) | payer OTHER ==
--- NOTE | 2021-11-21 10:00 | HP ---
HISTORY AND PHYSICAL CHIEF COMPLAINT: Right knee pain. HISTORY OF PRESENT ILLNESS: The patient is a 50-year-old female who presents with progressive right knee pain that began after a fall in July of this year. She notes medial pain with any weightbearing activities. She has intermittent locking and buckling. She has pain at night. She has tried medications without much relief. She has been using a cane. PAST MEDICAL HISTORY: Significant for hypertension, type 1 diabetes, hyperlipidemia, gastroesophageal reflux disease, depression, and arthritis. PAST SURGICAL HISTORY: Significant for left total knee arthroplasty, ankle surgery, section, cholecystectomy, tonsillectomy, and lumbar spine surgery. CURRENT MEDICATIONS: Alprazolam, hydrochlorothiazide, ibuprofen, lisinopril, pravastatin, Lexapro, Lyrica, omeprazole, hydrocodone. ALLERGIES: She denies drug allergies. FAMILY HISTORY: Significant for heart disease. SOCIAL HISTORY: Negative for current tobacco or alcohol use. REVIEW OF SYSTEMS: 16-point review of systems otherwise reviewed and is noncontributory. PHYSICAL EXAMINATION: On examination, the patient is approximately 5 foot 1, 277 pounds of endomorphic habitus. HEENT: Nonfocal. Neck is supple. She has painless passive motion of the right hip. Straight-leg raise is negative. Active motion right knee minus 10 to 100 degrees of flexion. She has mild effusion. She is tender about medial and lateral joint line. Collaterals are stable. Lorenza is negative. Ar's elicits medial pain. Her distal neurovascular exam appears intact in the right lower extremity. She does have an antalgic gait pattern. MRI report of the right knee 10/17/2021 shows evidence of a posterior medial meniscal tear along with moderate tricompartmental osteoarthrosis. IMPRESSION: 1. Internal derangement right knee with symptomatic medial meniscal tear. 2. Right knee moderate tricompartmental osteoarthrosis. RECOMMENDATIONS: I talked to the patient at length regarding her condition along with treatment options. At this point, she is having significant pain and mechanical symptoms despite previous conservative measures. After thorough discussion, she opts to proceed with surgery. We will plan to proceed with arthroscopic evaluation with probable partial medial meniscectomy. We will likely perform that as an outpatient procedure. Risks and benefits were discussed at length in layman's terms. MMODL / IJN: [id number] /
[~2021-11-22 05:27] MED LIST changes: -ACETAMINOPHEN TAB 500 MG TAB PO PRN; -MELOXICAM 7.5 MG TAB PO PRN; -ONDANSETRON 4 MG/2 ML VIAL IVP PRN; -ROPIVACAINE 246.25 MG, EPINEPHrine 0.5 MG, KETOROLAC 30 MG, cloNIDine HCL/PF 80 MCG, WA... MISCELLANE PRN; -TRANEXAMIC ACID 1,000 MG in SODIUM CHLORIDE 0.9% 100 ML IVPB PRN
[2021-11-22] MEDS ORDERED: ONDANSETRON 4 MG/2 ML VIAL IVP ONE (06:02)
[2021-11-22] MEDS ORDERED: LACTATED RINGERS 1,000 ML IV SCH (06:02)
[2021-11-22] MEDS ORDERED: LIDOCAINE 1% (10MG/ML) FOR IV START INTRADERMA PRN (06:02)
[2021-11-22] MEDS ORDERED: DEXAMETHASONE SOD PHOSPHATE 4 MG/ML 1 ML VIAL IV ONE (06:02)
[2021-11-22] MEDS ORDERED: MIDAZOLAM 2 MG/2 ML VIAL IV PRN (06:02)
[2021-11-22] MEDS ORDERED: HYDROmorphone 0.5 MG/0.5 ML SYRINGE IVP PRN (06:02)
[2021-11-22 06:51] VITALS: RESP 18
[2021-11-22] MEDS ORDERED: LACTATED RINGERS 1,000 ML IV ONE (06:54)
[2021-11-22 07:07] LABS: Glucose,Whole Blood 282 mg/dL (70-110)
[2021-11-22] MEDS ORDERED: INSULIN ASPART (NovoLOG) 100 UNIT/ML VIAL SQ ONE (07:20)
[2021-11-22] MEDS ORDERED: HYDROmorphone (PF) 1 MG/ML ONE (09:06)
[2021-11-22] MEDS ORDERED: fentaNYL (PF) 50 MCG/ML 2 ML AMP ONE (09:06)
[2021-11-22] MEDS ORDERED: LIDOCAINE 2% INJ 20 MG/ML (2 ML VIAL) ONE (09:06)
[2021-11-22] MEDS ORDERED: PROPOFOL 10 MG/ML 20 ML VIAL IV ONE (09:06)
[2021-11-22] MEDS ORDERED: MIDAZOLAM 2 MG/2 ML VIAL ONE (09:06)
[2021-11-22] MEDS ORDERED: KETOROLAC 15 MG/ML 1 ML VIAL ONE (09:06)
[2021-11-22] MEDS ORDERED: SUCCINYLCHOLINE CHLORIDE 200 MG/10 ML VIAL IV ONE (09:06)
[2021-11-22] MEDS ORDERED: EPINEPHrine (PF) 1 ML in SODIUM CHLORIDE 0.9% IRRIGATIO 3,000 ML IRRIGATION ONE ×4 (09:45)
--- NOTE | 2021-11-22 10:04 | P.OP ---
Date of Procedure: 11/22/21 Preoperative Diagnosis: Right knee internal derangement Postoperative Diagnosis: Right knee anterior medial meniscal tear/anterior lateral meniscal tear/grade 3 chondral injury distal medial femoral condyle Procedure(s) Performed: Right knee arthroscopic partial medial meniscectomy/partial lateral meniscectomy/medial femoral chondrectomy Anesthesia: JASIEL Surgeon: Juan Carlos Reddy Estimated Blood Loss (ml): 10 Pathology: none sent Condition: stable Disposition: PACU Indications for Procedure: The patient's a 51-year-old female who presents with progressive right knee pain and mechanical symptoms despite conservative measures. A discussion of the risks and benefits of operative intervention versus continued conservative measures was made with patient. She opted proceed with surgery. Operative risks to include infection, neurovascular injury, development of blood clots, possible incomplete resolution of symptoms, possible worsening symptoms and need for subsequent procedures was discussed. Informed consent was obtained. Operative Findings: As below Description of Procedure: The patient was brought to the operating room, and after induction of general anesthesia examined the right knee. Collaterals were stable, Lorenza was negative, and posterior drawer was negative. The right lower extremity was prepped and draped in a normal fashion. A superior lateral portal was made through a 3 mm skin incision superior and lateral to the patella. This was used for outflow. A lateral portal was made through a 5 mm vertical skin incision lateral to the patella tendon above the joint line. Diagnostic arthroscopy was performed. On inspection of the medial compartment, there was a tear involving the anterior horn of the medial meniscus in the white-white junction. This was debrided back to stable base with straight baskets and a motorized shaver. There was a grade 3 chondral injury involving the central posterior portion medial femoral condyle. There was a loose chondral flap debrided back to stable base with a motorized shaver. On inspection of the notch, the anterior cruciate ligament appeared to be intact. On inspection of the lateral compartment, there was a flap tear involving the anterior horn of the lateral meniscus in the white-white junction. This was debrided back to stable base with a motorized shaver.. On inspection of the patellofemoral articulation, grade 2-3 chondral changes were noted diffusely. The gutters were clear debris. The knee was then thoroughly irrigated. The portals were closed with Steri-Strips. A sterile dressing was applied in addition to a compression stocking. The patient was awoken from general anesthesia and transferred to recovery room in good condition. Blood loss was estimated at 10 mL. No complications were incurred.
[2021-11-22] MEDS ORDERED: MEPERIDINE 50 MG/ML SYRINGE IVP ONE (10:05)
[2021-11-22] MEDS ORDERED: diphenhydrAMINE 50 MG/ML 1 ML VIAL IVP ONE (10:10)
[2021-11-22 10:18] LABS: Glucose,Whole Blood 295 mg/dL (70-110)
[2021-11-22] MEDS ORDERED: HYDROmorphone 0.5 MG/0.5 ML SYRINGE IVP ONE (10:22)
[2021-11-22 11:03] VITALS: TEMP 98
[2021-11-22 11:05] VITALS: BP 159/87; PULSE 84
== END 2021-11-22 11:12 | disposition home or self-care (01) ==
LOC: OR 05:27
PROVIDERS: ATTEND Orthopaedic Surgery
DX: M23.211 Derangement of anterior horn of medial meniscus due to old tear or injury, right knee (principal); M23.241 Derangement of anterior horn of lateral meniscus due to old tear or injury, right knee; M17.11 Unilateral primary osteoarthritis, right knee; I10 Essential (primary) hypertension; E10.69 Type 1 diabetes mellitus with other specified complication; E78.5 Hyperlipidemia, unspecified; K21.9 Gastro-esophageal reflux disease without esophagitis; Z79.84 Long term (current) use of oral hypoglycemic drugs; Z79.899 Other long term (current) drug therapy; F32.A Depression, unspecified; Z96.652 Presence of left artificial knee joint; Z90.49 Acquired absence of other specified parts of digestive tract
CPT/HCPCS: 29880; J2250; J0330; J1200; J2175; J0690; J2405; J0171; J3010; J1170 ×2; J1885; J2704; J2001

== ENCOUNTER → 2022-07-23 | Outpatient (CLI) | payer OTHER | END | disposition home or self-care (01) | LOC: LABPAT 13:59 | PROVIDERS: ATTEND Orthopaedic Surgery | DX: Z01.812 Encounter for preprocedural laboratory examination (principal); M17.11 Unilateral primary osteoarthritis, right knee; Z22.322 Carrier or suspected carrier of Methicillin resistant Staphylococcus aureus | CPT/HCPCS: 87070 ==

== ENCOUNTER 2022-09-30 05:48 | Day surgery (SDC) | payer OTHER ==
--- NOTE | 2022-09-29 08:41 | P.HPOR ---
History of Present Illness H&P Date: 09/29/22 Chief Complaint: Right knee pain The patient is a 51-year-old female who presents with progressive right knee pain for the past several years worsening recently. She had a previous arthroscopy in 2021. She's tried therapy in addition to injections and medications with persistence of her symptoms. She is having pain with weightbearing activities. She relates with a cane. She notes catching and giving way. Review of Systems Negative except as in HPI Past Medical History Past Medical History: Diabetes Mellitus, Hyperlipidemia, Hypertension, Memory Impairment, Musculoskeletal Disorder, Osteoarthritis (OA) Additional Past Medical History / Comment(s): PATIENT HAS A MORPHINE PAIN PUMP, memory impaired due to psych meds. swelling in left foot. History of Any Multi-Drug Resistant Organisms: None Reported Past Surgical History: Adenoidectomy, Back Surgery, Section, Cholecystectomy, Joint Replacement, Orthopedic Surgery, Tonsillectomy Additional Past Surgical History / Comment(s): LEFT ARTHOSCOPY IN 2018. C-SEC X 2, left knee replaced. LT ANKLE SX, back surgery with hardware, right knee arthroscopy Past Anesthesia/Blood Transfusion Reactions: No Reported Reaction Additional Past Anesthesia/Blood Transfusion Reaction / Comment(s): no blood transfusions. Smoking Status: Former smoker, Vaper - Past Family History Mother Family Medical History: Thyroid Disorder Additional Family Medical History / Comment(s): thyroid removed Father Family Medical History: Diabetes Mellitus, Hyperlipidemia, Hypertension Medications and Allergies Home Medications Medication Instructions Recorded Confirmed Type Benztropine Mesylate [Cogentin] 1 mg PO BID 01/14/19 09/25/22 History Morphine Pain Pump 1 dose INJ CONTINUOUS 01/14/19 09/25/22 History Ziprasidone [Geodon] 40 mg PO BID 01/14/19 09/25/22 History lisinopriL [Zestril] 20 mg PO QAM 01/14/19 09/25/22 History metFORMIN HCL [Glucophage] 850 mg PO BID 01/14/19 09/25/22 History Magnesium Chloride [Mag64] 64 mg PO BID 11/21/21 09/25/22 History lamoTRIgine [LaMICtal] 100 mg PO BID 11/21/21 09/25/22 History Empagliflozin [Jardiance] 25 mg PO DAILY 08/13/22 09/25/22 History LORazepam [Ativan] 1 mg PO TID PRN 08/13/22 09/25/22 History Furosemide [Lasix] 20 mg PO DIRECTED 09/25/22 09/25/22 History Ibuprofen 600 mg PO DIRECTED PRN 09/25/22 09/25/22 History Allergies Allergy/AdvReac Type Severity Reaction Status Date / Time No Known Allergies Allergy Verified 09/25/22 12:34 Physical Examination - Knee right Appearance: effusion Effusion grade: grade 2 Varus alignment in stance: 5 degrees Tenderness with palpation: anterior, medial Pain: throughout ROM Gait: limping, uses cane ROM: extension: -10 degrees ROM: flexion: 80 degrees Crepitus with motion: Yes Strength: extension: 5/5 Strength: flexion: 5/5 Meniscal tests: medial meniscal tests: positive, medial joint line pain: positive Results The patient is a well-developed well-nourished female approximately 5 foot 5, 276 pounds of endomorphic habits. HEENT exam is nonfocal, neck is supple. She has painless passive motion of the right hip. Straight leg raise is negative. Her distal neurovascular exam appears intact right lower extremity. - Diagnostic results Knee x-ray: image reviewed (3 views of the right knee obtaining the office show moderate to severe medial compartment narrowing with subchondral sclerosis.) Assessment and Plan Assessment: Right knee medial compartment osteoarthrosis Obesity Diabetes Plan: I talked to the patient regarding her condition along with treatment options. At this point she's quite symptomatic having pain and mechanical symptoms secondary to her osteoarthrosis despite conservative measures. After thorough discussion she has received surgery. We'll plan to proceed with right total knee arthroplasty. Risks and benefits were discussed at length in layman's terms. We will institute DVT prophylaxis postoperatively.
[~2022-09-30 05:48] MED LIST changes: +ACETAMINOPHEN TAB 500 MG TAB PO PRN; +MELOXICAM 7.5 MG TAB PO PRN; +TRANEXAMIC ACID IN NACL,ISO-OS 1,000 MG in SALINE 1 100ML.BAG IVPB PRN
[2022-09-30] MEDS ORDERED: ONDANSETRON 4 MG/2 ML VIAL IVP ONE (05:50)
[2022-09-30] MEDS ORDERED: DEXAMETHASONE SOD PHOSPHATE 4 MG/ML 1 ML VIAL IV ONE (05:50)
[2022-09-30] MEDS ORDERED: HYDROmorphone 0.5 MG/0.5 ML SYRINGE IVP PRN ×2 (05:50→09:16)
[2022-09-30] MEDS ORDERED: LIDOCAINE 1% (10MG/ML) FOR IV START INTRADERMA ONE (06:50)
[2022-09-30] MEDS: LACTATED RINGERS 1,000 ML IV SCH ×2 (06:55→11:17)
[2022-09-30 07:12] LABS: Glucose,Whole Blood 195 mg/dL (70-110)
[2022-09-30] MEDS: fentaNYL (PF) 50 MCG/ML 2 ML AMP IV ONE ×2 (07:13→07:22)
[2022-09-30] MEDS ORDERED: MIDAZOLAM 2 MG/2 ML VIAL IV ONE (07:13)
[2022-09-30] MEDS ORDERED: fentaNYL (PF) 50 MCG/ML 2 ML AMP ONE (07:34)
[2022-09-30] MEDS ORDERED: PROPOFOL 10 MG/ML 20 ML VIAL IV ONE (07:34)
[2022-09-30] MEDS ORDERED: MIDAZOLAM 2 MG/2 ML VIAL ONE (07:34)
[2022-09-30] MEDS ORDERED: TRANEXAMIC ACID IN NACL,ISO-OS 1,000 MG/100 ML BAG ONE (07:34)
[2022-09-30] MEDS ORDERED: ROPIVACAINE 5 MG/ML 30 ML VIAL ONE (07:34)
[2022-09-30] MEDS ORDERED: KETAMINE 10 MG/ML 20 ML VIAL ONE (07:34)
[2022-09-30] MEDS ORDERED: SODIUM CHLORIDE 0.9% (PF) 10 ML VIAL ONE (07:34)
[2022-09-30] MEDS ORDERED: SUCCINYLCHOLINE CHLORIDE 200 MG/10 ML VIAL IV ONE (07:34)
[2022-09-30] MEDS ORDERED: ceFAZolin 3,000 MG in SODIUM CHLORIDE 0.9% IRRIGATIO 3,000 ML IRRIGATION ONE (08:24)
[2022-09-30] MEDS ORDERED: HYDROcodone/APAP 10-325MG 1 EACH TAB PO PRN (09:16)
[2022-09-30] MEDS ORDERED: HYDROmorphone 1 MG/ML 1 ML SYRINGE IVP PRN (09:16)
[2022-09-30] MEDS ORDERED: NALOXONE 0.4 MG/ML 1 ML VIAL IV PRN (09:16)
[2022-09-30] MEDS ORDERED: HYDROcodone/APAP 5-325MG 1 EACH TAB PO PRN (09:16)
--- NOTE | 2022-09-30 09:35 | P.OP ---
Date of Procedure: 09/30/22 Preoperative Diagnosis: Right knee severe tricompartmental osteoarthrosis Postoperative Diagnosis: Same Procedure(s) Performed: Right total knee arthroplastycementedposterior stabilized Implants: Depuy Attune size 6 neural cemented femoral component, size 5 cemented tibial component, 11 mm articular surface, 35 mm cemented patellar component. This is a posterior stabilized implant. Anesthesia: [facility] Surgeon: Juan Carlos Reddy Machine Fitter #1: Jorge England Estimated Blood Loss (ml): 50 Pathology: none sent Condition: stable Disposition: PACU Indications for Procedure: The patient is a 51-year-old female presents with progressive right knee pain secondary by osteoarthrosis despite conservative measures. A discussion of the risks and benefits of operative intervention versus continued conservative measures was made with patient. She opted to proceed with surgery. Operative risks to include infection, neurovascular injury, development of blood clots, possible component loosening/failure and need for subsequent procedures was discussed. Informed consent was obtained. Operative Findings: As below Description of Procedure: The patient was brought to the operating room, and after induction of spinal anesthesia the right lower extremity was prepped and draped in a normal fashion. The tourniquet was inflated to 270 mm marker. A longitudinal incision extending 3 finger breaths above the superior pole of patella extending to the medial aspect the tibial tubercle was then made. The skin and subcutaneous tissues were divided sharply. Electrocautery was used for hemostasis. A medial parapatellar arthrotomy was performed. The medial soft tissues to include the superficial and deep portions of the medial collateral ligament were elevated subperiosteally. The patella was everted. A portion of the retropatellar fat pad was excised sharply. The anterior cruciate ligament was sacrificed. Blunt retractors were placed. A starting hole was made in the distal femur 1 cm anterior to the posterior cruciate ligament origin. An intramedullary femoral guide was then inserted planning on 5 valgus distal cut with 9 mm distal resection. The cutting block was pinned in place. The distal cut was then made. The posterior referencing sizing guide was utilized. I felt size 6 narrow was most appropriate. 3 of external rotation was built into the system and verified off the trans-epicondylar axis and the posterior condyles. The cutting block was pinned in place. The anterior, posterior, and chamfer cuts then made. Bone fragments were removed. The intercondylar guide was placed and the notch cut was made with a sagittal saw. The bone block was removed in one fragment. The trial component was then placed. There is good anterior to posterior and medial to lateral fit. The distal peg holes were drilled. The trial component was removed. Attention was then paid towards preparing the proximal tibia. An extra medullary guide was utilized in line with the tibial shaft and second metatarsal distally. I planned on 4 mm resection from the medial compartment. The cutting block was pinned in place. The proximal tibial cut was then made. The bone was removed in one fragment. The remnants of the medial and lateral menisci were excised at the capsular junction with electrocautery. The tibia sized most appropriately at size 5. The trial femoral and tibial components were placed along with a 11 mm articular surface. I was able to obtain full flexion and extension with internal and external rotation. After several flexion and extension cycles, the tibial rotation was marked with electrocautery line with the medial one third of the tibial tubercle. Attention was then paid towards preparing the patella. A patella reamer was utilized taking stem to 14 mm of bone stock. A good flush cut was made. The patella sized most appropriately 35 mm. The peg holes were drilled. The trial components placed. I had good patellofemoral tracking with no hands technique. The trial components were then removed. The tibia was prepared in the appropriate rotation with appropriate drill and keel punch. The posterior osteophytes were removed with a curved osteotome. The flexion and extension gaps were checked and felt to be symmetric at 11 mm. A trial components were then removed. The bony surfaces were prepared with pulsatile lavage and dried. The tibial component was then cemented place was fully seated. Excess cement was removed. The femoral component cemented place and was fully seated. Excess cement was removed. The trial 11 mm articular surface was placed and the knee was put in full extension. The patella component was cemented place. After the cement had sufficiently hardened, the knee was again taken through a range of motion. Again I was able to obtain full flexion and extension with varus and valgus stress. The trial 11 mm articular surface was removed and the final one inserted. This was fully seated. Care was taken to avoid any soft tissue interposition. Pulsatile lavage was again utilized. The medial parapatellar arthrotomy was closed with #2 Ethibond suture. The tourniquet was deflated with approximately 50 minutes total tourniquet time. Final hemostasis was obtained with the cautery. There was minimal bleeding therefore a deep drain was not placed. The subcutaneous tissues were reapproximated with interrupted 2-0 Vicryl sutures. The skin was reapproximated with 3-0 subcuticular strata fix suture. Skin tape and adhesive was applied. A sterile dressing was applied. The patient was awoken from sedation and transferred to recovery room in good condition. Blood loss was estimated at 50 mL. No complications were incurred. Sponge and needle counts were correct at the end of the case. Jorge HERRERA assisted during the major components of this case to include exposure, bone resection, implantation, and closure.
[2022-09-30 09:43] VITALS: TEMP 100.6
[2022-09-30] MEDS ORDERED: ROPIVACAINE 1,100 MG, SODIUM CHLORIDE 0.9% 500 ML 330 ML, EMPTY PAIN BALL 1 EACH MISCELLANE PRN ×4 (09:50→16:33)
[2022-09-30 10:06] VITALS: RESP 16
[2022-09-30 10:34] LABS: Glucose,Whole Blood 280 mg/dL (70-110)
[2022-09-30] MEDS ORDERED: INSULIN ASPART (NovoLOG) 100 UNIT/ML VIAL SQ ONE (10:35)
--- NOTE | 2022-09-30 10:49 | XR ---
EXAMINATION TYPE: XR knee limited RT DATE OF EXAM: 09/30/2022 COMPARISON: NONE TECHNIQUE: Two views submitted HISTORY: Post op FINDINGS: There is a prosthetic knee in near anatomic alignment. There is soft tissue edema and emphysema. IMPRESSION: 1. Postoperative change. Appears in near-anatomic alignment
[2022-09-30] MEDS ORDERED: ceFAZolin 3 GM in SODIUM CHLORIDE 0.9% 100 ML IVPB ONE (13:00)
[2022-09-30 13:03] VITALS: BP 155/94; PULSE 103
--- NOTE | 2022-09-30 16:33 | P.ANPRN ---
Procedure Note - Anesthesia - Nerve Block Performed Right Adductor Canal Infusion Time Out Performed: Yes (0713) Date of Procedure: 09/30/22 Location of Patient: PreOp Indication: Acute Post-Operative Pain, Dx/Pain Location (Right knee), Requested by Surgeon Specifically requested for management of pain by DrApril: Juan Carlos Reddy Sedation Type: Sedate with meaningful contact maintained Preparation: Sterile Prep, Sterile Dressing Position: Supine Catheter: None Needle Types: Pajunk Needle Gauge: 18 Ultrasound used to visualize needle placement: Yes Ultrasound used to observe medication spread: Yes Injectate: 0.5% Ropivacaine (see comment for volume) (20 mL +10 mL of normal saline) Blood Aspirated: No Pain Paresthesia on Injection Noted: No Resistance on Injection: Normal Image Stored and Saved: Yes Events: Uneventful and Well Tolerated Right iPack Single Time Out Performed: Yes Date of Procedure: 09/30/22 Location of Patient: PreOp Indication: Acute Post-Operative Pain, Dx/Pain Location (Right knee pain), Requested by Surgeon Specifically requested for management of pain by Dr.: Juan Carlos Reddy Sedation Type: Sedate with meaningful contact maintained Preparation: Sterile Prep Position: Left Lateral Catheter: None Needle Types: Pajunk Needle Gauge: 21 Ultrasound used to visualize needle placement: Yes Ultrasound used to observe medication spread: Yes Injectate: 0.5% Ropivacaine (see comment for volume) (20 mL +10 mL of normal saline) Blood Aspirated: No Pain Paresthesia on Injection Noted: No Resistance on Injection: Normal Image Stored and Saved: Yes Events: Uneventful and Well Tolerated
== END 2022-09-30 13:35 | disposition home health service (06) ==
LOC: OR 05:48
PROVIDERS: ATTEND Orthopaedic Surgery
DX: M17.11 Unilateral primary osteoarthritis, right knee (principal); M25.761 Osteophyte, right knee; G89.18 Other acute postprocedural pain; I10 Essential (primary) hypertension; E11.9 Type 2 diabetes mellitus without complications; E78.5 Hyperlipidemia, unspecified; F41.9 Anxiety disorder, unspecified; F32.A Depression, unspecified; F12.90 Cannabis use, unspecified, uncomplicated; Z96.652 Presence of left artificial knee joint; Z87.891 Personal history of nicotine dependence; Z79.1 Long term (current) use of non-steroidal anti-inflammatories (NSAID); Z79.84 Long term (current) use of oral hypoglycemic drugs; Z79.891 Long term (current) use of opiate analgesic; Z79.899 Other long term (current) drug therapy
CPT/HCPCS: 27447; 64448; 64999; 97162; 81025; 73560; C1713 ×2; C1776; C1751; J2250; J1100; J0690 ×2; J2405; J3010; J2795